=== PATIENT | female | born 1970 | race Two or more races ===

== ENCOUNTER 2019-03-15 22:14 | Emergency (ER) | payer OTHER ==
[~2019-03-15] VITALS: Ht 152.4 cm; Wt 88.6 kg
[2019-03-15] MEDS ORDERED: LORA-1000 PO (22:26)
[2019-03-15] MEDS ORDERED: METF-960 PO (22:26)
[2019-03-15] MEDS ORDERED: ACETAMINOPHEN 500 MG TABLET PO ONE (22:45)
[2019-03-15] MEDS ORDERED: IBUPROFEN 600 MG TABLET PO ONE (22:45)
[2019-03-16] MEDS ORDERED: BENZONATATE 100 MG CAPSULE PO ONE (01:00)
[2019-03-16 01:16] VITALS: BP 120/80
== END 2019-03-16 01:16 | disposition home or self-care (01) ==
LOC: EMS 22:25
DX: B34.9 Viral infection, unspecified (principal); R51 Headache; F41.9 Anxiety disorder, unspecified; E11.9 Type 2 diabetes mellitus without complications; I10 Essential (primary) hypertension; Z90.710 Acquired absence of both cervix and uterus; Z79.84 Long term (current) use of oral hypoglycemic drugs
CPT/HCPCS: 87430